=== PATIENT | female | born 1985 | race Caucasian/White ===

== ENCOUNTER 2016-11-01 07:38 | Outpatient (CLI) | payer MEDICAID ==
[~2016-11-01] VITALS: Ht 165.1 cm; Wt 82.9 kg
[~2016-11-01 07:38] MED LIST: PREN1TAB79 PO
[2016-11-01 07:47] VITALS: Ht 165.1 cm; Wt 82.9 kg
[2016-11-01 07:48] VITALS: BP 117/68; PULSE 102; RESP 18
[2016-11-01 08:41] LABS: ADD UMIC YES; URINE BILIRUBIN (Dip) NEGATIVE (NEGATIVE); URINE BLOOD (Dip) 2+ (NEGATIVE); URINE COLOR LT. YELLOW (YELLOW); URINE GLUCOSE (Dip) NEGATIVE (NEGATIVE); URINE KETONES (Dip) NEGATIVE (NEGATIVE); URINE LEUKOCYTE ESTERASE (Dip) 2+ (NEGATIVE); URINE NITRITE (Dip) NEGATIVE (NEGATIVE); URINE TOTAL PROTEIN (Dip) 1+ (NEGATIVE); URINE UROBILINOGEN (Dip) 0.2 E.U./dL (0.1-1.0)
[2016-11-01 08:58] LABS: BACTERIA,URINE OCCASIONAL
[2016-11-01] MEDS ORDERED: LACTATED RINGER'S 1,000 ML IV SCH (09:00)
[2016-11-01] MEDS ORDERED: LACTATED RINGER'S 1,000 ML IV ONE (09:00)
--- NOTE | 2016-11-01 09:27 | RADRPT ---
PROCEDURE: US OB biophysical profile. CLINICAL INDICATION: decreased movements TECHNIQUE: Multiple sonographic images of the pelvis were obtained. The images were reviewed on a PACS workstation. COMPARISON: No prior studies are available for comparison. FINDINGS: There is a single viable intrauterine gestation. Cardiac activity is present with 146 beats per min vance. There is a vertex presentation. The placenta is anterior. There is no evidence of placental abruption. There is a slightly increased amount of amniotic fluid with an ARTURO = 20.8 cm. Biophysical profile: movement 2/2 tone 2/2. breathing 2/2 ARTURO 2/2 Total 05/28 RPTAT: AA . IMPRESSION: Normal biophysical profile. Mild polyhydramnios. . .Artur Seo MD, Date Time Electronically viewed and signed by .Artur Seo MD, MD on 11/01/2016 09:27 .S/
[2016-11-01] MEDS ORDERED: CEFTRIAXONE 2 GM/50 ML (PMX) 50 ML IVPB ONE (09:30)
[2016-11-01] MEDS ORDERED: NIFEdipine 10 MG CAP PO ONE (11:00)
== END 2016-11-01 11:15 | disposition home or self-care (01) ==
LOC: L-D 07:38 → OBT 07:38
PROVIDERS: ATTEND Obstetrics & Gynecology
DX: O36.8130 Decreased fetal movements, third trimester, not applicable or unspecified (principal); O99.213 Obesity complicating pregnancy, third trimester; E66.9 Obesity, unspecified; Z3A.00 Weeks of gestation of pregnancy not specified
CPT/HCPCS: 76818; 81001; 96360; 96367; J0696; J7120; Z7500; Z7610; 81003; G0463

== ENCOUNTER 2016-12-06 16:49 | Outpatient (CLI) | payer MEDICAID ==
[~2016-12-06] VITALS: Ht 165.1 cm; Wt 84.5 kg
[2016-12-06 17:22] VITALS: Ht 165.1 cm; Wt 84.5 kg
[2016-12-06 17:23] VITALS: BP 116/73; PULSE 87; RESP 18
--- NOTE | 2016-12-06 19:05 | CONS ---
Date/Time of Note Date/Time of Note DATE: 12/06/16 TIME: 18:59 Consultation Date/Type/Reason Admit Date/Time December 06, 2016 Triage consult This patient is 31 years old 3 para 2 with EDC of 12/08/2016 makes her 39 weeks and 5 days Her chief complaint is cramping of abdomen for 2 days no vaginal bleeding or discharge Her previous deliveries were spontaneous and vaginal on examination her abdomen is soft she has occasional 10-15 minutes apart contractions heart tone is normal around 150-160 with good variability no deceleration . Her NST is reactive On pelvic examination her cervix was closed 30% and is 3 station membranes intact her blood pressure was 116/73 pulse rate of 60 temperature 90 6. Constitutional: improved, no complaints Eyes: no complaints ENT: no complaints Respiratory: no complaints Cardiovascular: no complaints Gastrointestinal: no complaints Genitourinary: no complaints Musculoskeletal: no complaints Social History Smoking Status: Never smoker Exam/Review of Systems Vital Signs Vitals Vital Signs Date Time Temp Pulse Resp B/P Pulse Ox O2 Delivery O2 Flow Rate FiO2 12/06/16 17:23 98.5 87 18 116/73 Room Air JENELLE ROBERTSON MD Dec 06, 2016 19:05
== END 2016-12-06 19:00 | disposition home or self-care (01) ==
LOC: L-D 16:49 → OBT 16:49 → L-D 17:06 → OBT 19:00
PROVIDERS: ATTEND Obstetrics & Gynecology
DX: O62.9 Abnormality of forces of labor, unspecified (principal); Z3A.39 39 weeks gestation of pregnancy
CPT/HCPCS: G0463

== ENCOUNTER 2016-12-07 09:40 | Outpatient (CLI) | payer MEDICAID ==
[~2016-12-07] VITALS: Ht 165.1 cm; Wt 85.5 kg
[2016-12-07 09:44] VITALS: Ht 165.1 cm; Wt 85.5 kg
[2016-12-07 09:50] VITALS: BP 115/64; PULSE 102; RESP 18
== END 2016-12-07 12:20 | disposition home or self-care (01) ==
LOC: OBT 09:40 → L-D 09:41 → OBT 12:20
PROVIDERS: ATTEND Obstetrics & Gynecology
DX: O26.893 Other specified pregnancy related conditions, third trimester (principal); N89.8 Other specified noninflammatory disorders of vagina; Z3A.36 36 weeks gestation of pregnancy
CPT/HCPCS: 76818; Z7500; G0463

== ENCOUNTER 2016-12-17 12:38 | Inpatient (IN) | payer MEDICAID ==
[~2016-12-17] VITALS: Ht 165.1 cm; Wt 85.0 kg
[2016-12-17] MEDS ORDERED: OMEG1CAP2 PO (12:53)
[2016-12-17 12:57] VITALS: BP 112/72; PULSE 82; RESP 18
--- NOTE | 2016-12-17 14:25 | RADRPT ---
PROCEDURE: Obstetrical ultrasound. CLINICAL INDICATION: , evaluation. Pelvic pain. Post dates TECHNIQUE: Transabdominal sonographic images of the pelvis are obtained. COMPARISON: OB ultrasound 12/07/2016 FINDINGS: Single intrauterine gestation. There is a cephalic presentation. Measurements were made in order to determine age. The results are as follows: Cranial biometry cannot be obtained due to the low position preventing accurate measurement. AC = 38.94 cm FL = 8.53 cm Heart rate = 130 beats per minute The placenta is anterior. There is no evidence for an abruption or placenta previa. Ovaries are not visualized. IMPRESSION: Estimated weight = 4894 g based on abdominal circumference and femur length given that the hea d position was to low for accurate measurement. Average ultrasound age estimate unavailable due to incomplete biometry. RPTAT: AADD .Jhonatan Wills MD, Date Time Electronically viewed and signed by .Jhonatan Wills MD, on 12/17/2016 14:25 .B/
--- NOTE | 2016-12-17 14:55 | RADRPT ---
PROCEDURE: US biophysical profile. CLINICAL INDICATION: Decreased motion. Post dates. TECHNIQUE: Multiple sonographic images of the uterus were obtained. The images were revi ewed on a PACS workstation. COMPARISON: No prior studies are available for comparison. FINDINGS: There is a single live intrauterine gestation. heart rate is 130 beats per minute. The position is cephalic. The placenta is anterior with no abruption or previa. The ARTURO is 7.2 cm. (Normal = 5-20 cm.) Breathing Movement: 2 Gross Body Movement: 2 Tone: 2 Qualitative Amniotic Fluid Volume: 2 TOTAL: 8 IMPRESSION: 1. The biophysical score is 8/8. RPTAT: QQ .Saravanan Fong MD, MD Date Time Electronically viewed and signed by .Saravanan Fong MD, on 12/17/2016 14:55 .R/
[2016-12-17] MEDS: LACTATED RINGER'S 1,000 ML IV SCH (16:47)
[2016-12-17] MEDS ORDERED: CEFAZOLIN 2 GM/50 ML (PMX) 50 ML IV SCH (17:00)
[2016-12-17] MEDS ORDERED: METHYLERGONOVINE 0.2 MG INJ IM PRN ×2 (17:00→21:00)
[2016-12-17] MEDS ORDERED: OXYTOCIN 30 UNITS/LR 500 ML IV SCH (17:00)
[2016-12-17] MEDS ORDERED: CARBOPROST 250 MCG INJ IM PRN ×2 (17:00→21:00)
[2016-12-17] MEDS ORDERED: OXYTOCIN 30 UNITS/LR 500 ML IV PRN ×2 (17:00→21:00)
[2016-12-17] MEDS ORDERED: MISOPROSTOL 200 MCG TAB PR PRN ×2 (17:00→21:00)
[2016-12-17 17:14] LABS: ADD SCAN DIFF NO
[2016-12-17 17:16] LABS: BASOPHILS % 0.4 % (0.0-2.0); EOSINOPHILS # 0.1 10^3/ul (0.0-0.5); EOSINOPHILS % 0.8 % (0.0-7.0); HEMATOCRIT 41.1 % (37.0-47.0); LYMPHOCYTES # 3.4 10^3/ul (0.8-2.9); LYMPHOCYTES % 31.4 % (15.0-51.0); MEAN CORPUSCULAR HEMOGLOBIN 32.3 pg (29.0-33.0); MEAN CORPUSCULAR HGB CONC 34.1 g/dl (32.0-37.0); MEAN CORPUSCULAR VOLUME 94.9 fl (82.0-101.0); MEAN PLATELET VOLUME 11.6 fl (7.4-10.4); MONOCYTE # 0.6 10^3/ul (0.3-0.9); MONOCYTES % 5.6 % (0.0-11.0); NEUTROPHIL # 6.6 10^3/ul (1.6-7.5); NEUTROPHILS % 61.2 % (39.0-77.0); PLATELET COUNT 273 10^3/UL (140-415); RED BLOOD COUNT 4.33 10^6/ul (4.20-5.40); RED CELL DISTRIBUTION WIDTH 13.2 % (11.5-14.5); WHITE BLOOD COUNT 10.8 10^3/ul (4.8-10.8)
[2016-12-17 17:20] LABS: INR 0.99; PROTIME 13.1 Sec (12.2-14.2)
[2016-12-17 17:21] LABS: PARTIAL THROMBOPLASTIN TIME 27.1 Sec (25.0-35.0)
[2016-12-17] MEDS ORDERED: CITRIC ACID/NA CITRATE 30 ML CUP PO ONE (17:30)
[2016-12-17] MEDS ORDERED: morphine SULFATE/PF (10 MG/10 ML) INJ ONE (17:34)
[2016-12-17] MEDS ORDERED: PHENYLephrine (100 MCG/ML) 5ML SYG ONE ×2 (17:35→17:54)
[2016-12-17] MEDS ORDERED: FENTAnyl 50 MCG/ML VIAL ONE (17:35)
[2016-12-17] MEDS ORDERED: ONDANSETRON 4 MG INJ ONE (18:02)
[2016-12-17] MEDS ORDERED: DEXAMETHASONE 4 MG/ML 1 ML INJ ONE (18:02)
[2016-12-17] MEDS ORDERED: PROCHLORPERAZINE 10 MG INJ IV PRN (18:30)
[2016-12-17] MEDS ORDERED: HYDROmorphONE 1 MG/ML SYG IV PRN ×2 (18:30)
[2016-12-17] MEDS ORDERED: ONDANSETRON 4 MG INJ IV PRN (18:30)
[2016-12-17] MEDS ORDERED: NALOXONE (0.4 MG/ML) INJ IV PRN (18:30)
[2016-12-17] MEDS ORDERED: DIPHENHYDRAMINE 50 MG INJ IV PRN (18:30)
[2016-12-17] MEDS ORDERED: ZOLPIDEM 5 MG TAB PO PRN (18:30)
--- NOTE | 2016-12-17 19:39 | DELSUM ---
Delivery Summary A-C Datetime Report Generated by CPN: 12/17/2016 19:39 DELIVERY PERSONNEL Core Dropper: Ghukasyan, Mitzi MATERNAL INFORMATION Delivery Anesthesia: Spinal Medications in Delivery: 30 UNITS OF PIT IN 500 CC LR Estimated Blood Loss (ml): 600 Placenta Cultured: No Maternal Complications: Other Other Maternal Complications: EFW: [id number] LABOR SUMMARY EDC: 12/08/2016 00:00 No. Babies in Womb: 1 Attempted: No Labor Anesthesia: None LABOR INFORMATION Reason for Induction: Not Applicable Oxytocin: N/A Group B Beta Strep: Negative Antibiotics # of Doses: 1 Antibiotics Time of Last Dose: 12/17/2016 17:45 Steroids Given: None Reason Steroids Not Administered: Not Applicable MEMBRANES Membranes Rupture Method: Artificial Rupture of Membranes: 12/17/2016 18:05 Length of Rupture (hr): 0.02 Amniotic Fluid Color: Clear Amniotic Fluid Amount: Small Amniotic Fluid Odor: Normal STAGES OF LABOR Stage 3 hr: 0 Stage 3 min: 1 CSECTION DELIVERY Primary Indication: Other Other Primary Indication: MACROSOMIA CSection Urgency: Elective CSection Incidence: Primary Labor: Labor Elective: Elective CSection Incision: Lower Uterine Transverse BABY A INFORMATION Infant Delivery Date/Time: 12/17/2016 18:06 Method of Delivery: Born in Route : No : N/A Forceps: N/A Vacuum Extraction: N/A Shoulder Dystocia : N/A SHOULDER DYSTOCIA BABY A Infant Delivery Date/Time: 12/17/2016 18:06 PRESENTATION/POSITION BABY A Presentation: Cephalic Cephalic Presentation: Vertex Vertex Position: Left Occipital Anterior Breech Presentation: N/A PLACENTA INFORMATION BABY A Placenta Delivery Time : 12/17/2016 18:07 Placenta Method of Delivery: Manual Removal Placenta Status: Delivered SCORES BABY A Heart Rate 1 min: >100 bpm Resp Effort 1 min: Good Cry Reflex Irritability 1 min: Cough/Sneeze/Pulls Away Muscle Tone 1 min: Active Motion Color 1 min: Body [place], Extremit Blue Resuscitation Effort 1 min: Tactile Stimulation SCORE 1 MIN: 9 Heart Rate 5 min: >100 bpm Resp Effort 5 min: Good Cry Reflex Irritability 5 min: Cough/Sneeze/Pulls Away Muscle Tone 5 min: Active Motion Color 5 min: Body [place], Extremit Blue Resuscitation Effort 5 min: Tactile Stimulation SCORE 5 MIN: 9 INFORMATION BABY A Gestational Age at Delivery: 41.2 Gestational Status: Late Term- 41- 41.6 Weeks Outcome : Liveborn Condition : Stable Sex: Male IDENTIFICATION/MEDS BABY A ID Band Number: [id number] ID Band Location: Right Leg; Left Arm Sensor Applied: Yes Sensor Number: [id number] Sensor Location : Cord Clamp Vitamin K Given : Not Given Erythromycin Given: Not Given WEIGHT/LENGTH BABY A Birthweight (gm): 4175 Infant Weight (lb): 9 Infant Weight (oz): 3 Length (in): 21.50 Infant Length (cm): 54.61 CORD INFORMATION BABY A No. Cord Vessels: 3 Nuchal Cord : N/A Cord Blood Taken: Yes Infant Suction: Nose; Pharynx ASSESSMENT BABY A Infant Complications: None Physical Findings at Delivery: Within Normal Limits Infant Respirations: Appears Normal Tank Cleaning Supervisor/ALS Called : No Care By: MARIAMA DANGELO Transferred To: Remains with Mother
[2016-12-17] MEDS ORDERED: ACETAMINOPHEN/CODEINE #3 TAB PO PRN ×2 (21:00)
[2016-12-17] MEDS: SENNA/DOCUSATE NA (8.6MG/50MG) TAB PO SCH (21:00)
[2016-12-17] MEDS ORDERED: OXYCODONE/ACETAMINOPHEN (5/325) TAB PO PRN (21:00)
[2016-12-17] MEDS ORDERED: CEFAZOLIN 1 GM/50 ML (PMX) 50 ML IVPB SCH (21:00)
--- NOTE | 2016-12-17 21:02 | HP ---
DATE OF ADMISSION: 12/17/2016 HISTORY OF PRESENT ILLNESS: This is a 31-year-old female, 3, para 2, EDC of 2016, admitted at 41 weeks and 3 days at [facility]. Upon admission, the patient underwent a biophysical profile and estimated weight. Biophysical profile was 8/8 with a low ARTURO of 7.2; however, the estimated weight was 4950 grams. The report of the ultrasound was dis cussed with the patient and concern regarding a vaginal delivery with the possibility of shoulder dy stocia was explained to the patient, and option of a trial of labor with induction versus operative delivery with section was discussed. Pros and cons of both options were thoroughly discuss ed and the patient elected operative delivery and declined trial of labor by induction. She is bein g prepared to undergo a primary due to macrosomia. This patient has been under the care [facility] and her course according to her , was not complicated with gesta tional diabetes or any other serious medical or surgical condition. GYNECOLOGIC HISTORY: Menarche at age 14, regular period 28 days with lasting 4 or 5 days. History of 2 other pregnancies with normal vaginal deliveries. The other 2 babies were 7 pounds and 6 poun ds. ALLERGIES: THE PATIENT DENIES ALLERGY TO ANY KNOWN MEDICATION. SOCIAL HABITS: Denies smoking or drinking. FAMILY HISTORY: Noncontributory. REVIEW OF SYSTEMS: Within normal. PHYSICAL EXAMINATION: VITAL SIGNS: She is 5 feet 4 inches, 187 pounds with a temperature of 98.4, pulse of 77, respiratio n of 20 and blood pressure 112/72. HEAD, EARS, NOSE AND THROAT: Negative. NECK: Supple. No thyromegaly. LUNGS: Clear to P and A. HEART: Normal sinus rhythm, no murmur. BREASTS: Status compatible with state of the . No abnormal palpable mass. No nipple retr action or discharge. No axillary adenopathy, no supraclavicular adenopathy. ABDOMEN: Measures approximately 40 cm from symphysis pubis to the height of the fundus. hea rt tones, category 1. Contractions mild, 4 to 6 minutes apart. PELVIC: Cervix long and closed, vertex at -1, -2 station. EXTREMITIES: No edema, no varicosities. IMPRESSION: Intrauterine at 41-1/2 weeks' gestation, suspected macrosomia. Patient decli natalie trial of labor. Risk of shoulder dystocia was discussed with the patient and also the complicat ion of the section, including bowel or bladder injury, infection, hemorrhage, and hematoma. She decided the operative delivery by section. She is being prepared to undergo the abov e-mentioned surgery. Dictated By: LUC LARIOS/YONNY Conf#: [id number] DID#: [id number]
[2016-12-17 21:25] VITALS: BP 134/76; PULSE 80; RESP 20
[2016-12-17 22:00] VITALS: BP 127/77; PULSE 77; RESP 18
[2016-12-17 23:00] VITALS: BP 118/64; PULSE 83; RESP 18
[2016-12-17] MEDS: OXYTOCIN 30 UNITS/LR 500 ML IV SCH (23:53)
[2016-12-17] MEDS: KETOROLAC 30 MG INJ IV PRN (23:54)
[2016-12-17] MEDS: LANOLIN 7 GM TUBE TOP PRN (23:57)
[2016-12-18] VITALS (8 sets, daily range): BP systolic 96–113; BP diastolic 50–69; PULSE 59–88; RESP 16–19
[2016-12-18] MEDS: LACTATED RINGER'S 1,000 ML IV SCH ×3 (00:35→16:35)
[2016-12-18] MEDS: OXYTOCIN 30 UNITS/LR 500 ML IV SCH ×2 (04:54→06:23)
[2016-12-18] MEDS: SENNA/DOCUSATE NA (8.6MG/50MG) TAB PO SCH ×2 (08:12→21:24)
[2016-12-18 08:14] LABS: ADD SCAN DIFF NO
[2016-12-18 08:24] LABS: BASOPHILS % 0.3 % (0.0-2.0); HEMATOCRIT 33.7 % (37.0-47.0); HEMOGLOBIN 11.3 g/dl (12.0-16.0); LYMPHOCYTES # 2.4 10^3/ul (0.8-2.9); LYMPHOCYTES % 19.8 % (15.0-51.0); MEAN CORPUSCULAR HEMOGLOBIN 31.8 pg (29.0-33.0); MEAN CORPUSCULAR HGB CONC 33.5 g/dl (32.0-37.0); MEAN CORPUSCULAR VOLUME 94.9 fl (82.0-101.0); MEAN PLATELET VOLUME 11.4 fl (7.4-10.4); MONOCYTE # 0.9 10^3/ul (0.3-0.9); MONOCYTES % 7.3 % (0.0-11.0); NEUTROPHIL # 8.6 10^3/ul (1.6-7.5); NEUTROPHILS % 72.3 % (39.0-77.0); PLATELET COUNT 238 10^3/UL (140-415); RED BLOOD COUNT 3.55 10^6/ul (4.20-5.40); RED CELL DISTRIBUTION WIDTH 13.2 % (11.5-14.5); WHITE BLOOD COUNT 11.9 10^3/ul (4.8-10.8)
[2016-12-18] MEDS: IBUPROFEN 600 MG TAB PO SCH ×2 (12:00→17:33)
--- NOTE | 2016-12-18 12:38 | PN ---
Date/Time of Note Date/Time of Note DATE: 12/18/16 TIME: 12:37 OB Subjective Subjective Subjective Post day 1 Afebrile vital signs stable abdomen is lochia normal incision bowel sounds weak but present ambulation recommended Laboratory Tests Test 12/17/16 16:45 12/18/16 07:12 Activated Partial Thromboplast Time 27.1Sec Basophils # 0.010^3/ul 0.010^3/ul Basophils % 0.4% 0.3% Eosinophils # 0.110^3/ul 0.010^3/ul Eosinophils % 0.8% 0.0% Hematocrit 41.1% 33.7% Hemoglobin 14.0g/dl 11.3g/dl INR International Normalized Ratio 0.99 Lymphocytes # 3.410^3/ul 2.410^3/ul Lymphocytes % 31.4% 19.8% Mean Corpuscular Hemoglobin 32.3pg 31.8pg Mean Corpuscular Hemoglobin Concent 34.1g/dl 33.5g/dl Mean Corpuscular Volume 94.9fl 94.9fl Mean Platelet Volume 11.6fl 11.4fl Monocytes # 0.610^3/ul 0.910^3/ul Monocytes % 5.6% 7.3% Neutrophils # 6.610^3/ul 8.610^3/ul Neutrophils % 61.2% 72.3% Nucleated Red Blood Cells # 0.010^3/ul 0.010^3/ul Nucleated Red Blood Cells % 0.0/100WBC 0.0/100WBC Platelet Count 52389^3/UL 91880^3/UL Prothrombin Time 13.1Sec Prothrombin Time Ratio 1.0 Rapid Plasma Reagin NONREACTIVE Red Blood Count 4.3310^6/ul 3.5510^6/ul Red Cell Distribution Width 13.2% 13.2% White Blood Count 10.810^3/ul 11.910^3/ul Current Medications Medications (Trade) Dose Ordered Sig/Grabiel Route PRN Reason Start Time Stop Time Status Last Admin Dose Admin Lactated Ringer's 1,000 ml @ 125 mls/hr Q8H IV 12/17/16 16:35 12/18/16 10:29 Cefazolin Sodium/ Dextrose 50 ml @ 100 mls/hr ONCE IV 12/17/16 17:00 12/17/16 20:58 DC Oxytocin/Lactated Ringer's 500 ml @ 125 mls/hr ONCE IV 12/17/16 17:00 12/17/16 20:58 DC 12/17/16 20:21 Oxytocin/Lactated Ringer's 500 ml @ 0 mls/hr ONCE PRN IV For Hemorrhage Management 12/17/16 17:00 12/17/16 21:04 DC Methylergonovine Maleate (Methergine) 0.2 mg ONCE PRN IM VAGINAL BLEEDING 12/17/16 17:00 12/17/16 21:04 DC Carboprost Tromethamine (Hemabate) 250 mcg ONCE PRN IM VAGINAL BLEEDING 12/17/16 17:00 12/17/16 21:04 DC Misoprostol (Cytotec) 1,000 mcg ONCE PRN VT VAGINAL BLEEDING 12/17/16 17:00 12/17/16 21:04 DC Citric Acid/ Sodium Citrate (Bicitra) 30 ml ONCE ONCE PO 12/17/16 17:30 12/17/16 17:32 DC 12/17/16 17:35 Morphine Sulfate (Duramorph) 10 mg STK-MED ONCE .ROUTE 12/17/16 17:34 12/17/16 17:35 DC Fentanyl (Sublimaze) 100 mcg STK-MED ONCE .ROUTE 12/17/16 17:35 12/17/16 17:36 DC Phenylephrine HCl (Lito-Synephrine Inj Syg) 500 mcg STK-MED ONCE .ROUTE 12/17/16 17:35 12/17/16 17:36 DC Phenylephrine HCl (Lito-Synephrine Inj Syg) 500 mcg STK-MED ONCE .ROUTE 12/17/16 17:54 12/17/16 17:55 DC Ondansetron HCl (Zofran Inj) 4 mg STK-MED ONCE .ROUTE 12/17/16 18:02 12/17/16 18:03 DC Dexamethasone (Decadron) 4 mg STK-MED ONCE .ROUTE 12/17/16 18:02 12/17/16 18:03 DC Naloxone HCl (Narcan) 0.1 mg Q2M PRN IV FOR RESP RATE 8 OR LESS 12/17/16 18:30 12/18/16 18:29 Ketorolac Tromethamine (Toradol) 30 mg Q6H PRN IV PAIN 12/17/16 18:30 12/18/16 18:29 12/17/16 23:54 Hydromorphone HCl (Dilaudid) 0.2 mg Q3H PRN IV PAIN LEVEL 1-5 12/17/16 18:30 12/18/16 18:29 Hydromorphone HCl (Dilaudid) 0.4 mg Q3H PRN IV PAIN LEVEL 6-10 12/17/16 18:30 12/18/16 18:29 Diphenhydramine HCl (Benadryl) 25 mg Q6H PRN IV ITCHING 12/17/16 18:30 12/18/16 18:29 Ondansetron HCl (Zofran Inj) 4 mg Q6H PRN IV NAUSEA AND/OR VOMITING 12/17/16 18:30 12/18/16 18:29 Prochlorperazine (Compazine Inj) 10 mg ONCE PRN IV NAUSEA AND/OR VOMITING 12/17/16 18:30 12/18/16 18:29 Zolpidem Tartrate (Ambien) 5 mg HS MAY REPEAT X 1 PRN PO INSOMNIA 12/17/16 18:30 12/18/16 18:29 Acetaminophen/ Codeine Phosphate (Tylenol No.3) 1 tab Q4H PRN PO PAIN LEVEL 4-6 12/17/16 21:00 Acetaminophen/ Codeine Phosphate (Tylenol No.3) 2 tab Q4H PRN PO PAIN LEVEL 7-10 12/17/16 21:00 Oxycodone/ Acetaminophen (Percocet (5/ 325)) 1 tab Q4H PRN PO PAIN LEVEL 4-6 12/17/16 21:00 Oxycodone/ Acetaminophen (Percocet (5/ 325)) 2 tab Q4H PRN PO PAIN LEVEL 7-10 12/17/16 21:00 Ibuprofen (Motrin) 600 mg Q6 PO 12/18/16 12:00 Simethicone (Mylicon) 160 mg Q8H PRN PO DISTENSION/GAS/BLOATING 12/17/16 21:00 Senna/Docusate Sodium (Senokot-S) 1 tab BID PO 12/17/16 21:00 12/18/16 08:12 Lanolin (Wms-C-Tbmykr) 1 applic BEDSIDE MEDICATION PRN TOP BEDSIDE FOR ED TO NIPPLES 12/17/16 21:00 12/17/16 23:57 Diphtheria/ Tetanus/Acell Pertussis 0.5 ml 0.5 ml ONCE ONCE IM* 12/20/16 09:00 12/20/16 09:01 Oxytocin/Lactated Ringer's 500 ml @ 0 mls/hr ONCE PRN IV For Hemorrhage Management 12/17/16 21:00 Methylergonovine Maleate (Methergine) 0.2 mg ONCE PRN IM VAGINAL BLEEDING 12/17/16 21:00 Carboprost Tromethamine (Hemabate) 250 mcg ONCE PRN IM VAGINAL BLEEDING 12/17/16 21:00 Misoprostol 1000 mcg 1,000 mcg ONCE PRN VT VAGINAL BLEEDING 12/17/16 21:00 Cefazolin Sodium 50 ml @ 100 mls/hr ONCE IVPB 12/17/16 21:00 12/17/16 21:29 DC 12/17/16 23:44 Oxytocin/Lactated Ringer's 500 ml @ 125 mls/hr Q4H IV 12/17/16 20:54 12/18/16 06:23 Influenza Virus Vaccine (Fluzone) 0.5 ml ONCE ONCE IM* 12/19/16 09:00 12/19/16 09:01 LUC DAVIES MD Dec 18, 2016 12:38
--- NOTE | 2016-12-18 12:57 | OPR ---
DATE OF OPERATION: PREOPERATIVE DIAGNOSIS: Intrauterine at 41-1/2 weeks' gestation, suspected macrosomia. E stimated weight by the ultrasound 4950 grams. The patient declined a trial of labor and induc tion. POSTOPERATIVE DIAGNOSIS: Intrauterine at 41-1/2 weeks' gestation, suspected macrosomia. Estimated weight by the ultrasound 4950 grams. The patient declined a trial of labor and tito ction. PROCEDURE PERFORMED: Primary transverse low cervical section. SURGEON: Luc Chicas MD AUTOMATION MACHINE OPERATOR: Christ Renteria MD ANESTHESIA: Spinal. ANESTHESIOLOGIST: Reid Coelho MD FINDINGS: Live baby boy, Apgars 9 and 9. Baby weighed 4175 grams. DETAILS OF THE PROCEDURE: Under satisfactory spinal anesthesia, the patient was prepped and draped and placed in supine position, tilted to the left. Pfannenstiel incision was made, carried through the subcutaneous tissue. Bleeders brought under control with electrocautery. Fascia incised to the length of the incision. Rectus muscle divided in midline. Peritoneum exposed, entered through a t ransverse incision. Exploration of abdomen revealed gravid uterus at term, normal appearing tubes a nd ovaries. Bladder flap was developed. Transverse incision was made in the lower segment of the u terus. Amniotic sac ruptured. Clear amniotic fluid noted. Live baby boy was delivered from unenga ged vertex. Nasal oropharyngeal suction was performed. Cord was clamped after it stopped pulsation . The baby handed to the team for immediate attention. The patient received 20 units of P itocin. Placenta delivered manually intact. Uterine cavity cleaned with wet sponge and drainage es tablished. Uterus closed in 2 layers using Monocryl #1 in continuous fashion. Peritoneal cavity irrigated with warm saline. Sponge, needle and instrument reported to be correct. Abdominal peritoneum closed wi th 2-0 chromic catgut continuously. Rectus muscle approximated with few interrupted 2-0 chromic cat gut. Fascia closed with #1 PDS in a continuous fashion. Subcutaneous tissue approximated with 2-0 chromic catgut. Skin closed with coco. Estimated blood loss 600 mL. Urine bag contained 200 mL of clear urine. The patient tolerated the procedure well, transferred to recovery room in a good c ondition. Dictated By: LUC LARIOS/NTS Conf#: [id number] [facility]#: [id number]
[2016-12-18] MEDS: KETOROLAC 30 MG INJ IV PRN (17:32)
[2016-12-19] MEDS: IBUPROFEN 600 MG TAB PO SCH ×5 (00:29→23:34)
[2016-12-19 04:08] VITALS: BP 103/55; PULSE 76; RESP 18
[2016-12-19 07:30] VITALS: BP 95/55; PULSE 78; RESP 18
[2016-12-19] MEDS: SENNA/DOCUSATE NA (8.6MG/50MG) TAB PO SCH ×2 (08:15→21:01)
[2016-12-19] MEDS ORDERED: INFLUENZA VIRUS VACCINE 0.5 ML (DISPENSING) IM* ONE (09:00)
[2016-12-19] MEDS: OXYCODONE/ACETAMINOPHEN (5/325) TAB PO PRN (15:42)
[2016-12-19 16:00] VITALS: BP 125/73; PULSE 80; RESP 18
[2016-12-19 20:00] VITALS: BP 122/69; PULSE 62; RESP 18
[2016-12-20] MEDS: LANOLIN 7 GM TUBE TOP PRN (02:14)
[2016-12-20 04:11] VITALS: BP 106/70; PULSE 68; RESP 18
[2016-12-20] MEDS: IBUPROFEN 600 MG TAB PO SCH ×2 (05:38→12:36)
[2016-12-20 08:00] VITALS: BP 109/66; PULSE 72; RESP 18
[2016-12-20] MEDS: SENNA/DOCUSATE NA (8.6MG/50MG) TAB PO SCH (08:07)
[2016-12-20] MEDS ORDERED: DIPHTH/TET/ACEL PERTUSS (ADULT) 0.5 ML VIAL IM* ONE (09:00)
--- NOTE | 2016-12-20 12:19 | PD.PPDC ---
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
--- NOTE | 2016-12-20 12:24 | DS ---
Date/Time of Note Date/Time of Note DATE: 12/20/16 TIME: 12:20 Obstetrical Discharge Record Final Diagnosis Final Diagnosis: Term delivered Section Section: Primary Condition on Discharge Physical Assessment Last Vitals: Post date 3 Primary for suspected macrosomia , postoperative course uneventful did not spiked temperature had normal bowel movement no problem with urination on the third postoperative day incision inspected found free of inflammation and infection patient discharged home with a follow-up instruction to be seen at the clinic in 4 days to discontinue coco. Voiding: Yes Bowel Movement: Yes Breast: Soft, non-tender, Filling Fundus: Firm Abdomen and Incision: Incision dry healing well Calf Tenderness: No Patient Condition: Good LUC DAVIES MD Dec 20, 2016 12:23
[2016-12-20] MEDS: OXYCODONE/ACETAMINOPHEN (5/325) TAB PO PRN (13:42)
== END 2016-12-20 15:58 | disposition home or self-care (01) | DRG 766 ==
LOC: OBT 12:38 → L-D 12:38 → OBT 16:30 → L-D 16:30 → PP1 21:12
PROVIDERS: ADMIT Obstetrics & Gynecology; ATTEND Obstetrics & Gynecology
PROC: 10D00Z1 Extraction of Products of Conception, Low, Open Approach (ICD-10-PCS; principal; 2016-12-17 18:00)
PROC: 3E0234Z Introduction of Serum, Toxoid and Vaccine into Muscle, Percutaneous Approach (ICD-10-PCS; 2016-12-19)
PROC: 3E0234Z Introduction of Serum, Toxoid and Vaccine into Muscle, Percutaneous Approach (ICD-10-PCS; 2016-12-20)
DX: O36.63X0 Maternal care for excessive fetal growth, third trimester, not applicable or unspecified (principal); O48.0 Post-term pregnancy; Z23 Encounter for immunization; Z3A.41 41 weeks gestation of pregnancy; Z37.0 Single live birth
CPT/HCPCS: 76815; 76818; 85025; 85610; 85730; 86592; 86850; 86900; 86901; 90686; 90715; 94760; 99464; G0463; J0690; J1100; J1885; J2274; J2370; J2405; J2590; J3010; J7120